=== PATIENT | male | born 1995 | race Caucasian/White ===

== ENCOUNTER → 2020-08-13 06:56 | Outpatient (CLI) | payer OTHER, SELFPAY ==
[2020-08-13 18:14] LABS: SARS-CoV-2 RNA PCR Negative
== END ==
PROVIDERS: PCP Family Medicine; Visit Provider Nurse Practitioner Family
DX: R68.89 Other general symptoms and signs (principal); Z20.822 Contact with and (suspected) exposure to COVID-19
CPT/HCPCS: C9803; U0003; U0005

== ENCOUNTER 2022-06-24 08:26 | Outpatient (CLI) | payer OTHER, SELFPAY ==
--- NOTE | 2022-07-17 17:32 | WPDSLEEPSTUD ---
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 There is a family of sleep disordered breathing, his mother uses CPAP, and his father snores. He occasionally awakens from sleep feeling short of breath, occasionally awakens at night with heartburn, belching or coughing. He rarely has trouble sleeping with a cold, rarely wakes up gasping for breath at night. He always has apneas witnessed by other people. He occasionally sweats excessively at night occasionally notices his heart pounding or beating irregularly at night. He rarely falls asleep during the day, never falls asleep involuntarily or while driving. He does not have loss of muscle tone with strong emotion. He rarely has daytime difficulties due to excessive sleepiness. Does not feel paralyzed on waking or falling asleep. He occasionally has vivid dreamlike scenes upon awakening or falling asleep. He is not afraid to go to sleep. he occasionally has nightmares, occasionally remembers dreams, occasionally has racing thoughts. He rarely feels sad depressed or anxious. He does not have muscular tension. He rarely notices parts of his body jerking. He does not kick at night or have crawling or aching feelings in his legs. Does not have any kind of leg pain at night. He occasionally has morning jaw pain. He occasionally grinds his teeth, occasionally is bothered by pain during the day. He rarely is awakened by pain at night, rarely wakes up feeling stiff in the morning with sore achy muscles or pain in the neck and spine. He has concentration difficulties. Normal bedtime is between 11:00 p.m. and 12 midnight, and the amount of time to fall asleep varies night to night. Some nights he does not wake at all and other nights he may wake up twice. When he wakes, this is to go to the bathroom and to drink water. He is usually able to return to sleep within 10 minutes. His normal wake time is 6:30 a.m. on weekdays. On the weekends, may go to bed between 11:00 p.m. and 2:00 a.m.. He may wake as late as 10:00 a.m.. He generally does not take naps. A short nap lasting 10 or 15 minutes may be refreshing. He is usually drowsy for an hour after waking. Feels better in the evening compared to other times of day. Habits: Tobacco quit 4 years ago. No caffeine. Alcohol up to 3 drinks on weekends/ No recreational substances. [facility] Past Medical History Medical History (Updated 07/20/22 @ 12:34 by Odalys Rg MD) BMI greater than 40 Elevated blood pressure reading in office without diagnosis of hypertension Seasonal allergies Family History Family History Father Hypertension Social History Social History Smoking status: Never smoker Tobacco type: cigarettes Alcohol intake: current Drinks per week: 8 Substance use: never Substance use type: does not use Medications Home Medications Medication Instructions Recorded Confirmed Type lisinopril 10 mg tablet 10 mg PO DAILY #30 tabs 05/18/22 07/08/22 Rx albuterol sulfate 90 mcg/actuation 2 puff inhalation Q4H #18 grams 07/07/22 07/08/22 Rx aerosol inhaler (Ventolin HFA) epinephrine 0.3 mg/0.3 mL 0.3 mg (0.3 mL) IM ONCE #2 ea 07/10/22 07/10/22 Rx injection, auto-injector (EpiPen 2-Brayden) Sleep Procedure This test was performed using the [employer] multiple channel system including EOG, EEG, submental EMG, EKG, nasal and oral airflow using thermistors and nasal pressure senso
[2022-07-20 12:54] VITALS: BMI 46.0
== END 2022-06-25 07:12 | disposition home or self-care (01) ==
LOC: ANHCSM 08:27
PROVIDERS: PCP Family Medicine; Visit Provider Family Medicine
DX: G47.33 Obstructive sleep apnea (adult) (pediatric) (principal); Z68.42 Body mass index [BMI] 45.0-49.9, adult
CPT/HCPCS: 95811